=== PATIENT | female | born 1975 | race Caucasian/White ===

== ENCOUNTER 2017-07-22 16:17 | Emergency (ER) | payer OTHER ==
[~2017-07-22] VITALS: Ht 170.2 cm; Wt 99.3 kg
[~2017-07-22 16:17] MED LIST: ACCUNEB SO1.25 MG/1 INH; ACETAMINOPHEN-1 EAC1 PO; ACYCLOVIR 400400 MG PO; ACYCLOVIR 800800 M1 PO; ADULT LOW DOSE81 MG PO; AMOXICILLIN 50500 MG PO; AMOXICILLIN875 MG PO; ASPIR 8181 MG; ASPIR 8181 MG PO; ASPIRIN EC325 M1 PO; ASPIRIN325 PO; ATIVAN1 MG PO; AUGMENTIN 875875 M1 PO; AUGMENTIN 875875 MG PO; AZITHROMYCIN 2250 MG PO; BACTRIM DS TAB1 EACH PO; BENADRYL25 MG; BENADRYL25 MG PO; CATAPRES; CATAPRES PO; CATAPRES-TTS 10.1 MG PO; CATAPRES-TTS 20.2 MG PO; CATAPRES0.2 MG PO; CATAPRES0.2 MG TRANSDERM; CHERATUSSIN DA480 ML PO; CIPROFLOXACIN500 M1 PO; CLEOCIN HCL150 MG PO; CLEOCIN HCL300 MG PO; CLONIDINE HCL0.2 M2 PO; CLONIDINE TRANSDERM; CLONIDINE0.1; DIFLUCAN150 M1 PO; DIPHENHIST50 MG; DOXYCYCLINE 10100 M1 PO; DOXYCYCLINE HY100 MG PO; FIORICET 50-321 EACH PO; FLAGYL500 M1 PO; FLAGYL500 MG PO; FLONASE 0.05%50 MCG NS; HYDROCHLOROTHIA25 M2 PO; HYDROCODON-ACE1 EA11 PO; HYDROCODON-ACE1 EAC7 PO; HYDROCODONE-AP1 EAC6 PO; HYDROCODONE-APA1 TA1 PO; K-DUR 20 MEQ T20 MEQ PO; KEFLEX500 MG; KEFLEX500 MG PO; LIDOCAINE 22 %/30 GM TOP; LIDOCREAM5 GM TP; LIDODERM 5%1 PATC1 TRANSDERM; LIPITOR40 MG PO; LISINOPRIL-HCT1 EAC1 PO; LISINOPRIL10 MG PO; LORTAB 5 MG/5001 TA1 PO; MACROBID 100 M100 M1 PO; METFORMIN HCL500 MG PO; METOPROLOL SUCC50 MG PO; NORCO 5-325 TA1 EACH PO; NORCO 7.5-3251 EACH PO; NORVASC 5 MG TAB5 MG PO; NORVASC10 MG PO; OMEGA-31000 MG PO; ONDANSETRON HCL4 M2 PO; ONDANSETRON ODT4 MG PO; PENICILLIN VK500 M1; PENICILLIN VK500 M1 PO; PERCOCET; PERCOCET 5-3251 EACH PO; PERCOCET 7.5-31 EACH PO; PERCOCET PO; PHENERGAN 25 MG25 M1 PO; PHENERGAN 25 MG25 MG PO; PLAVIX 75 MG TA75 M1 PO; POTASSIUM20 PO; PREDNISONE 10 M10 MG; PREDNISONE 20 M20 MG PO; PREDNISONE 5 MG5 M1 PO; PRILOSEC40 MG PO; ROBAXIN 750 MG750 M1 PO; ROBAXIN500 MG PO; SANTYL OINTMENT30 G1; SILVASORB; TESSALON PERLE100 MG PO; TOPROL XL50 MG PO; TYLENOL325 MG PO; ULTRAM 50MG TAB50 MG PO; VALACYCLOVIR1000 MG PO; VANCOCIN 125 M125 M1 PO; VICODIN 5-5001 EACH PO; ZANTAC300 MG PO; ZOFRAN 4 MG ORAL4 M1 DIS; ZOFRAN 4 MG ORAL4 MG PO; ZOFRAN ODT4 MG PO; ZOFRAN ODT4 MG SUBLING; ZOFRAN4 MG PO; ZPAK PO
[2017-07-22] MEDS ORDERED: HYDRALAZINE 5050 MG PO (16:38)
[2017-07-22] MEDS ORDERED: COREG25 MG PO (16:40)
[2017-07-22 17:38] LABS: ABSOLUTE BASOPHILS 0.1 thou/uL (0.0-0.2); ABSOLUTE EOSINOPHILS 0.2 thou/uL (0.0-0.7); ABSOLUTE LYMPHOCYTES 2.6 thou/uL (0.8-5.3); ABSOLUTE MONOCYTES 0.7 thou/uL (0.0-1.2); ABSOLUTE NEUTROPHILS 9.2 thou/uL (1.6-8.1); BASOPHILS 0.7 %; EOSINOPHILS 1.2 %; HEMATOCRIT 49.9 % (37.0-47.0); HEMOGLOBIN 16.9 gm/dL (12.0-15.0); MCH 28.9 pg (26.0-34.0); MCV 85.3 fL (80.0-100.0); MONOCYTES 5.8 %; MPV 9.4 fl. (7.2-11.1); NUCLEATED RBCS 0 /100WBC; PLATELET COUNT* 225 thou/uL (150-400); POLYS 72.3 %; RBC 5.85 mil/uL (4.20-5.00); RDW-CV 17.7 % (10.5-14.5); WBC 12.8 thou/uL (4.0-11.0)
[2017-07-22 17:47] LABS: CREATININE 0.8 mg/dL (0.6-1.3); POTASSIUM 3.1 mmol/L (3.5-5.1)
[2017-07-22 17:52] LABS: TOTAL BILIRUBIN 0.4 mg/dL (<0.1-1.0); TOTAL PROTEIN 8.3 g/dL (6.4-8.2)
[2017-07-22] MEDS ORDERED: HYDROCODONE-AP1 EAC6 PO (18:38)
[2017-07-22] MEDS ORDERED: KEFLEX500 M1 PO (18:38)
[2017-07-22 18:44] VITALS: BP 144/100
[2017-07-22 18:45] LABS: ESR (SEDRATE) 10 mm/hr (0-20)
== END 2017-07-22 18:46 | disposition home or self-care (01) ==
LOC: M.ERS 16:17
PROVIDERS: Physician Assistant
DX: N64.4 Mastodynia (principal); I16.0 Hypertensive urgency; E11.9 Type 2 diabetes mellitus without complications; F17.210 Nicotine dependence, cigarettes, uncomplicated; Z87.442 Personal history of urinary calculi; Z90.710 Acquired absence of both cervix and uterus; Z85.43 Personal history of malignant neoplasm of ovary; Z90.49 Acquired absence of other specified parts of digestive tract; Z88.1 Allergy status to other antibiotic agents; Z88.6 Allergy status to analgesic agent; Z88.8 Allergy status to other drugs, medicaments and biological substances

== ENCOUNTER 2018-02-04 16:46 | Emergency (ER) | payer OTHER ==
[~2018-02-04] VITALS: Ht 170.2 cm; Wt 99.8 kg
[~2018-02-04 16:46] MED LIST changes: +COREG25 MG PO; +HYDRALAZINE 5050 MG PO; +KEFLEX500 M1 PO
[2018-02-04] MEDS ORDERED: KEFLEX500 M1 PO (17:58)
[2018-02-04] MEDS ORDERED: NORCO 5-325 TA1 EACH PO (17:58)
[2018-02-04 18:30] VITALS: BP 166/104
== END 2018-02-04 18:31 | disposition home or self-care (01) ==
LOC: M.ERS 16:46
DX: S90.31XA Contusion of right foot, initial encounter (principal); X58.XXXA Exposure to other specified factors, initial encounter; Y93.89 Activity, other specified; Y92.89 Other specified places as the place of occurrence of the external cause; Y99.8 Other external cause status; I10 Essential (primary) hypertension; Z90.49 Acquired absence of other specified parts of digestive tract; Z90.710 Acquired absence of both cervix and uterus

== ENCOUNTER 2018-03-30 12:26 | Emergency (ER) | payer OTHER ==
[~2018-03-30] VITALS: Ht 170.2 cm; Wt 98.9 kg
[2018-03-30] MEDS ORDERED: NORCO 5-325 TA1 EACH PO (15:06)
[2018-03-30 15:28] VITALS: BP 178/111
== END 2018-03-30 15:48 | disposition home or self-care (01) ==
LOC: M.ERS 12:26
DX: M25.512 Pain in left shoulder (principal); M25.522 Pain in left elbow; W00.0XXA Fall on same level due to ice and snow, initial encounter; Y93.89 Activity, other specified; Y92.89 Other specified places as the place of occurrence of the external cause; Y99.8 Other external cause status; I10 Essential (primary) hypertension; Z85.41 Personal history of malignant neoplasm of cervix uteri; Z85.43 Personal history of malignant neoplasm of ovary

== ENCOUNTER 2018-06-16 13:33 | Emergency (ER) | payer OTHER ==
[~2018-06-16] VITALS: Ht 170.2 cm; Wt 95.3 kg
[2018-06-16] MEDS ORDERED: COUMADIN 5 MG TA5 M1 PO (13:48)
[2018-06-16 13:50] LABS: URINE BILIRUBIN NEGATIVE (Negative); URINE BLOOD TRACE (Negative); URINE CLARITY CLEAR; URINE COLOR YELLOW; URINE GLUCOSE-RANDOM NEGATIVE (Negative); URINE KETONES NEGATIVE (Negative); URINE LEUKOCYTES-REFLEX NEGATIVE (Negative); URINE NITRITE-REFLEX NEGATIVE (Negative); URINE PROTEIN NEGATIVE (Negative); URINE SPECIFIC GRAVITY <= 1.005 (1.005-1.030); URINE UROBILINOGEN 0.2 E.U./dl (0.2-1.0)
[2018-06-16 14:29] LABS: ABSOLUTE BASOPHILS 0.1 thou/uL (0.0-0.2); ABSOLUTE EOSINOPHILS 0.2 thou/uL (0.0-0.7); ABSOLUTE LYMPHOCYTES 2.1 thou/uL (0.8-5.3); ABSOLUTE MONOCYTES 0.8 thou/uL (0.0-1.2); ABSOLUTE NEUTROPHILS 6.3 thou/uL (1.6-8.1); BASOPHILS 1.2 %; EOSINOPHILS 2.3 %; HEMATOCRIT 46.4 % (37.0-47.0); HEMOGLOBIN 15.9 gm/dL (12.0-15.0); MCHC 34.2 g/dL (28.0-37.0); MCV 87.9 fL (80.0-100.0); MONOCYTES 8.3 %; MPV 8.4 fl. (7.2-11.1); NUCLEATED RBCS 0 /100WBC; PLATELET COUNT* 258 thou/uL (150-400); POLYS 66.2 %; RBC 5.28 mil/uL (4.20-5.00); RDW-CV 15.1 % (10.5-14.5); WBC 9.6 thou/uL (4.0-11.0)
[2018-06-16 14:36] LABS: CALCIUM 9.4 mg/dL (8.5-10.1); CREATININE 0.8 mg/dL (0.6-1.3); POTASSIUM 3.8 mmol/L (3.5-5.1)
[2018-06-16 14:41] LABS: ALBUMIN 3.3 g/dL (3.4-5.0); TOTAL BILIRUBIN 0.2 mg/dL (<0.1-1.0); TOTAL PROTEIN 7.7 g/dL (6.4-8.2)
[2018-06-16] MEDS ORDERED: ZOFRAN ODT4 MG PO (15:28)
[2018-06-16 15:37] VITALS: BP 182/107
== END 2018-06-16 15:38 | disposition home or self-care (01) ==
LOC: M.ERS 13:33
PROVIDERS: Nurse Practitioner Family
DX: R10.9 Unspecified abdominal pain (principal); R11.2 Nausea with vomiting, unspecified; I10 Essential (primary) hypertension; E11.9 Type 2 diabetes mellitus without complications; Z87.442 Personal history of urinary calculi; Z95.5 Presence of coronary angioplasty implant and graft; Z85.3 Personal history of malignant neoplasm of breast; Z88.1 Allergy status to other antibiotic agents; Z88.6 Allergy status to analgesic agent; Z88.8 Allergy status to other drugs, medicaments and biological substances; Z85.43 Personal history of malignant neoplasm of ovary; Z90.710 Acquired absence of both cervix and uterus; Z90.49 Acquired absence of other specified parts of digestive tract

== ENCOUNTER 2018-08-20 17:10 | Emergency (ER) | payer OTHER ==
[~2018-08-20] VITALS: Ht 170.2 cm; Wt 105.7 kg
[~2018-08-20 17:10] MED LIST changes: +COUMADIN 5 MG TA5 M1 PO
[2018-08-20] MEDS ORDERED: BENTYL 20 MG TA20 M1 PO (17:15)
[2018-08-20 17:55] LABS: HEMATOCRIT 44.2 % (37.0-47.0); HEMOGLOBIN 15.1 gm/dL (12.0-15.0); MCH 29.8 pg (26.0-34.0); MCHC 34.1 g/dL (28.0-37.0); MCV 87.4 fL (80.0-100.0); MPV 8.9 fl. (7.2-11.1); NUCLEATED RBCS 0 /100WBC; PLATELET COUNT* 232 thou/uL (150-400); RBC 5.06 mil/uL (4.20-5.00); RDW-CV 15.6 % (10.5-14.5)
[2018-08-20 18:06] LABS: ALBUMIN 3.3 g/dL (3.4-5.0); CALCIUM 8.6 mg/dL (8.5-10.1); CREATININE 0.8 mg/dL (0.6-1.3); TOTAL BILIRUBIN 0.4 mg/dL (<0.1-1.0); TOTAL PROTEIN 7.4 g/dL (6.4-8.2)
[2018-08-20 18:16] LABS: ABSOLUTE EOSINOPHILS 0.2 thou/uL (0.0-0.7); ABSOLUTE MONOCYTES 0.2 thou/uL (0.0-1.2); ABSOLUTE NEUTROPHILS 9.6 thou/uL (1.6-8.1); ATYPICAL LYMPHS 4 %; PLATELET ESTIMATE ADEQUATE
[2018-08-20] MEDS ORDERED: MIRALAX17 GM PO (19:06)
[2018-08-20 19:12] VITALS: BP 139/89
== END 2018-08-20 19:12 | disposition home or self-care (01) ==
LOC: M.ERS 17:10
PROVIDERS: Nurse Practitioner
DX: K59.00 Constipation, unspecified (principal); I10 Essential (primary) hypertension; Z85.41 Personal history of malignant neoplasm of cervix uteri; Z85.43 Personal history of malignant neoplasm of ovary; Z90.49 Acquired absence of other specified parts of digestive tract; Z95.5 Presence of coronary angioplasty implant and graft; Z90.710 Acquired absence of both cervix and uterus; F17.210 Nicotine dependence, cigarettes, uncomplicated; Z88.1 Allergy status to other antibiotic agents; Z88.8 Allergy status to other drugs, medicaments and biological substances

== ENCOUNTER 2018-11-12 19:36 | Emergency (ER) | payer OTHER ==
[~2018-11-12] VITALS: Ht 170.2 cm; Wt 95.3 kg
[~2018-11-12 19:36] MED LIST changes: +BENTYL 20 MG TA20 M1 PO; +MIRALAX17 GM PO
[2018-11-12] MEDS ORDERED: NORVASC10 MG PO (19:53)
[2018-11-12] MEDS ORDERED: METFORMIN HCL500 MG PO (19:54)
[2018-11-12] MEDS ORDERED: SPIRONOLACTONE25 M1 PO (19:54)
[2018-11-12] MEDS ORDERED: TRULICITY0.75 MG/0. SUBQ (19:54)
[2018-11-12] MEDS ORDERED: NORCO 5-325 TA1 EAC1 PO (21:05)
[2018-11-12 21:18] VITALS: BP 177/114
[2018-11-13] MEDS ORDERED: PERCOCET PO (15:19)
== END 2018-11-12 21:19 | disposition home or self-care (01) ==
LOC: M.ERS 19:36
DX: S67.21XA Crushing injury of right hand, initial encounter (principal); I10 Essential (primary) hypertension; E11.9 Type 2 diabetes mellitus without complications; F17.210 Nicotine dependence, cigarettes, uncomplicated; Z88.1 Allergy status to other antibiotic agents; Z88.8 Allergy status to other drugs, medicaments and biological substances; Z88.6 Allergy status to analgesic agent; Z90.710 Acquired absence of both cervix and uterus; Z85.41 Personal history of malignant neoplasm of cervix uteri; Z90.49 Acquired absence of other specified parts of digestive tract; W23.1XXA Caught, crushed, jammed, or pinched between stationary objects, initial encounter; Y92.89 Other specified places as the place of occurrence of the external cause; Y93.89 Activity, other specified; Y99.8 Other external cause status

== ENCOUNTER 2018-11-13 13:24 | Emergency (ER) | payer OTHER ==
[~2018-11-13] VITALS: Ht 170.2 cm; Wt 95.3 kg
[~2018-11-13 13:24] MED LIST changes: +NORCO 5-325 TA1 EAC1 PO; +SPIRONOLACTONE25 M1 PO; +TRULICITY0.75 MG/0. SUBQ
[2018-11-13 14:41] LABS: ABSOLUTE BASOPHILS 0.1 thou/uL (0.0-0.2); ABSOLUTE EOSINOPHILS 0.2 thou/uL (0.0-0.7); ABSOLUTE LYMPHOCYTES 2.3 thou/uL (0.8-5.3); ABSOLUTE MONOCYTES 0.7 thou/uL (0.0-1.2); ABSOLUTE NEUTROPHILS 7.3 thou/uL (1.6-8.1); BASOPHILS 1.2 %; EOSINOPHILS 2.1 %; HEMATOCRIT 45.4 % (37.0-47.0); HEMOGLOBIN 15.4 gm/dL (12.0-15.0); LYMPHOCYTES 21.9 %; MCH 30.1 pg (26.0-34.0); MCHC 33.9 g/dL (28.0-37.0); MCV 88.7 fL (80.0-100.0); MONOCYTES 6.2 %; NUCLEATED RBCS 0 /100WBC; PLATELET COUNT* 245 thou/uL (150-400); POLYS 68.6 %; RBC 5.12 mil/uL (4.20-5.00); RDW-CV 15.6 % (10.5-14.5); WBC 10.7 thou/uL (4.0-11.0)
[2018-11-13 14:48] LABS: POTASSIUM 3.6 mmol/L (3.5-5.1)
[2018-11-13] MEDS ORDERED: PERCOCET PO (15:19)
[2018-11-13 15:37] VITALS: BP 181/100
== END 2018-11-13 15:40 | disposition home or self-care (01) ==
LOC: M.ERS 13:24
PROVIDERS: Emergency Medicine Emergency Medical Services
DX: M79.641 Pain in right hand (principal); I10 Essential (primary) hypertension; Z85.43 Personal history of malignant neoplasm of ovary; Z85.41 Personal history of malignant neoplasm of cervix uteri; Z90.49 Acquired absence of other specified parts of digestive tract; Z95.5 Presence of coronary angioplasty implant and graft; F17.210 Nicotine dependence, cigarettes, uncomplicated; Z88.5 Allergy status to narcotic agent; Z88.8 Allergy status to other drugs, medicaments and biological substances

== ENCOUNTER 2018-11-14 19:57 | Observation (INO) | payer OTHER ==
[~2018-11-14] VITALS: Ht 170.2 cm; Wt 95.3 kg
[2018-11-14 20:07] VITALS: BP 151/111
[2018-11-14 22:16] LABS: ABSOLUTE BASOPHILS 0.2 thou/uL (0.0-0.2); ABSOLUTE EOSINOPHILS 0.2 thou/uL (0.0-0.7); ABSOLUTE LYMPHOCYTES 2.5 thou/uL (0.8-5.3); ABSOLUTE MONOCYTES 0.7 thou/uL (0.0-1.2); ABSOLUTE NEUTROPHILS 10.2 thou/uL (1.6-8.1); BASOPHILS 1.2 %; EOSINOPHILS 1.7 %; HEMOGLOBIN 16.2 gm/dL (12.0-15.0); LYMPHOCYTES 18.2 %; MCH 29.8 pg (26.0-34.0); MCHC 33.7 g/dL (28.0-37.0); MCV 88.4 fL (80.0-100.0); MONOCYTES 4.9 %; NUCLEATED RBCS 0 /100WBC; PLATELET COUNT* 264 thou/uL (150-400); RBC 5.42 mil/uL (4.20-5.00); RDW-CV 15.5 % (10.5-14.5); WBC 13.7 thou/uL (4.0-11.0)
[2018-11-14 22:25] LABS: CREATININE 0.8 mg/dL (0.6-1.3); POTASSIUM 3.6 mmol/L (3.5-5.1)
[2018-11-14 22:30] LABS: ALBUMIN 4.1 g/dL (3.4-5.0); TOTAL BILIRUBIN 0.4 mg/dL (<0.1-1.0); TOTAL PROTEIN 8.6 g/dL (6.4-8.2)
[2018-11-15 00:16] VITALS: BP 150/95
[2018-11-15 00:20] VITALS: BP 120/84
[2018-11-15 09:11] VITALS: BP 147/91
[2018-11-15 10:36] LABS: ABSOLUTE BASOPHILS 0.1 thou/uL (0.0-0.2); ABSOLUTE EOSINOPHILS 0.2 thou/uL (0.0-0.7); ABSOLUTE LYMPHOCYTES 2.3 thou/uL (0.8-5.3); ABSOLUTE MONOCYTES 0.7 thou/uL (0.0-1.2); ABSOLUTE NEUTROPHILS 5.7 thou/uL (1.6-8.1); BASOPHILS 0.7 %; EOSINOPHILS 2.8 %; HEMATOCRIT 41.2 % (37.0-47.0); LYMPHOCYTES 25.2 %; MCH 30.4 pg (26.0-34.0); MCHC 34.2 g/dL (28.0-37.0); MCV 88.7 fL (80.0-100.0); MONOCYTES 7.8 %; MPV 9.5 fl. (7.2-11.1); NUCLEATED RBCS 0 /100WBC; PLATELET COUNT* 213 thou/uL (150-400); POLYS 63.5 %; RBC 4.64 mil/uL (4.20-5.00); RDW-CV 15.3 % (10.5-14.5)
[2018-11-15 10:38] LABS: HEMOGLOBIN 14.1 gm/dL (12.0-15.0)
[2018-11-15 10:40] LABS: CALCIUM 9.7 mg/dL (8.5-10.1); CREATININE 0.9 mg/dL (0.6-1.3); POTASSIUM 3.4 mmol/L (3.5-5.1)
[2018-11-15 11:09] LABS: PROTIME 10.3 Seconds (9.20-11.50)
[2018-11-15] MEDS ORDERED: PAIN RELIEVER500 MG PO (11:29)
[2018-11-15] MEDS ORDERED: OXYCODONE HCL 55 MG PO (11:29)
[2018-11-15] MEDS ORDERED: SENNA S TABLET1 EACH PO (11:30)
[2018-11-15 12:13] VITALS: BP 120/84
== END 2018-11-15 12:50 | disposition home or self-care (01) ==
LOC: M.ERS 19:57 → M.ORTHSURG 23:31 → M.TBA-ER 23:31 → M.ORTHSURG 11-15 00:22
PROVIDERS: Emergency Medicine; Family Medicine; ADMIT Internal Medicine
DX: S60.221A Contusion of right hand, initial encounter (principal); I10 Essential (primary) hypertension; E11.9 Type 2 diabetes mellitus without complications; E78.5 Hyperlipidemia, unspecified; I25.10 Atherosclerotic heart disease of native coronary artery without angina pectoris; F17.210 Nicotine dependence, cigarettes, uncomplicated; R55 Syncope and collapse; R11.2 Nausea with vomiting, unspecified; Z90.49 Acquired absence of other specified parts of digestive tract; Z79.899 Other long term (current) drug therapy; Z95.5 Presence of coronary angioplasty implant and graft; Z85.43 Personal history of malignant neoplasm of ovary; Z85.41 Personal history of malignant neoplasm of cervix uteri; Z98.890 Other specified postprocedural states; X50.9XXA Other and unspecified overexertion or strenuous movements or postures, initial encounter; Y92.89 Other specified places as the place of occurrence of the external cause; Y99.8 Other external cause status

== ENCOUNTER 2018-11-18 12:05 | Inpatient (IN) | payer OTHER ==
[~2018-11-18] VITALS: Ht 170.2 cm; Wt 100.0 kg
[~2018-11-18 12:05] MED LIST changes: +OXYCODONE HCL 55 MG PO; +PAIN RELIEVER500 MG PO; +SENNA S TABLET1 EACH PO
[2018-11-18 12:09] VITALS: BP 151/114
[2018-11-18 12:29] LABS: ABSOLUTE BASOPHILS 0.1 thou/uL (0.0-0.2); ABSOLUTE EOSINOPHILS 0.1 thou/uL (0.0-0.7); ABSOLUTE LYMPHOCYTES 2.1 thou/uL (0.8-5.3); ABSOLUTE MONOCYTES 0.5 thou/uL (0.0-1.2); ABSOLUTE NEUTROPHILS 8.8 thou/uL (1.6-8.1); EOSINOPHILS 1.1 %; HEMATOCRIT 46.9 % (37.0-47.0); HEMOGLOBIN 15.6 gm/dL (12.0-15.0); MCH 29.7 pg (26.0-34.0); MCHC 33.3 g/dL (28.0-37.0); MCV 89.3 fL (80.0-100.0); MONOCYTES 4.3 %; MPV 9.3 fl. (7.2-11.1); NUCLEATED RBCS 0 /100WBC; PLATELET COUNT* 258 thou/uL (150-400); POLYS 75.6 %; RBC 5.26 mil/uL (4.20-5.00); RDW-CV 15.3 % (10.5-14.5); WBC 11.6 thou/uL (4.0-11.0)
[2018-11-18 12:39] LABS: ANION GAP 10 mmol/L (7-16); BUN 10 mg/dL (7-18); CALCIUM 10.1 mg/dL (8.5-10.1); CHLORIDE 104 mmol/L (98-107); CO2 23 mmol/L (21-32); CREATININE 0.9 mg/dL (0.6-1.3); GLUCOSE 226 mg/dL (70-99); POTASSIUM 4.2 mmol/L (3.5-5.1); SODIUM 137 mmol/L (136-145)
[2018-11-18 12:41] LABS: PROTIME 10.4 Seconds (9.20-11.50)
[2018-11-18 12:48] LABS: ALBUMIN 3.9 g/dL (3.4-5.0); ALKALINE PHOSPHATASE 130 U/L (46-116); LIPASE 145 U/L (73-393); SGOT 19 U/L (15-37); SGPT 37 U/L (30-65); TOTAL BILIRUBIN 0.2 mg/dL (<0.1-1.0); TOTAL PROTEIN 8.5 g/dL (6.4-8.2); TROPONIN-I LEVEL <0.06 ng/mL (<0.06)
--- NOTE | 2018-11-18 16:34 | EKG ---
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1975 Requested By: Telly Bobo Order Number: [id number] MD: Eric Lovelace Measurements Intervals [place] Rate: 114 P: 3 IN: 136 QRS: 44 QRSD: 89 T: -3 QT: 329 QTc: 454 Interpretive Statements Sinus tachycardia The late R-wave progression Borderline T abnormalities, inferior leads Compared to ECG 10/31/2015 17:57:20 T-wave abnormality now present Electronically Signed On 11-18-2018 16:34:00 CDT by Eric Lovelace [email or web address] <ELECTRONICALLY SIGNED> By: Eric Lovelace MD, FACC 11/18/18 1634 1211 1211 Eric Lovelace MD, [facility] /EPI
[2018-11-18 17:11] VITALS: BP 160/103
[2018-11-18 18:00] VITALS: BP 140/82
[2018-11-18 20:00] VITALS: BP 136/87
--- NOTE | 2018-11-18 20:00 | NUR ---
RECEIVED REPORT AND ASSUMED CARE OF PT, ASSESSMENT COMPLETED. PT C/O CONSTANT ACHING CHEST PAIN, STATES HYDROCODONE DIDN'T WORK, ASKING FOR MORPHINE WHEN AVAILABLE. REASSURANCE GIVEN. TELEMETRY ON SHOWING SR. WILL CONT TO MONITOR AND ASSIST NEEDED.
[2018-11-19 00:17] VITALS: BP 123/65
[2018-11-19 04:00] VITALS: BP 131/82
[2018-11-19 05:09] LABS: ABSOLUTE BASOPHILS 0.1 thou/uL (0.0-0.2); ABSOLUTE EOSINOPHILS 0.2 thou/uL (0.0-0.7); ABSOLUTE LYMPHOCYTES 2.7 thou/uL (0.8-5.3); ABSOLUTE MONOCYTES 0.7 thou/uL (0.0-1.2); ABSOLUTE NEUTROPHILS 5.8 thou/uL (1.6-8.1); EOSINOPHILS 2.5 %; HEMATOCRIT 40.2 % (37.0-47.0); LYMPHOCYTES 28.5 %; MCH 29.9 pg (26.0-34.0); MCHC 33.2 g/dL (28.0-37.0); MCV 90.2 fL (80.0-100.0); MONOCYTES 6.9 %; MPV 9.8 fl. (7.2-11.1); NUCLEATED RBCS 0 /100WBC; PLATELET COUNT* 217 thou/uL (150-400); POLYS 61.1 %; RBC 4.45 mil/uL (4.20-5.00); RDW-CV 15.7 % (10.5-14.5); WBC 9.5 thou/uL (4.0-11.0)
[2018-11-19 05:12] LABS: HEMOGLOBIN 13.3 gm/dL (12.0-15.0)
[2018-11-19 05:36] LABS: CREATININE 0.7 mg/dL (0.6-1.3); POTASSIUM 3.7 mmol/L (3.5-5.1)
--- NOTE | 2018-11-19 05:57 | NUR ---
PT AWAKE FREQ. UPSET ABOUT HER PAIN MEDICATION, ASKING FOR PO PAIN MED WITHIN A SHORT PERIOD OF RECEIVING IV MED. EXPLAINED THEY NEEDED TO BE SPACED OUT. EARLIER IN THE EVENING PT STATED HYDROCODON DIDN'T WORK FOR HER. ROOM DARK AND QUIET WITH REASSURANCE GIVEN. TELEMETRY CONT TO SHOW SR. HS GOALS OF SAFETY ACHIEVED. HOURLY ROUNDING OBSERVED.
[2018-11-19 08:00] VITALS: BP 128/69
[2018-11-19 11:30] VITALS: BP 145/86
--- NOTE | 2018-11-19 14:01 | NUR ---
ATTEMPTED TO MEET WITH PT, OFF UNIT. KNOWN FROM ADMIT EARLIER THIS MONTH. LIVES WITH SPOUSE, IS INDEPENDENT. UNINSURED AND WAS GIVEN COMMUNITY RESOURCE INFO AT LAST STAY. WILL FOLLOW
--- NOTE | 2018-11-19 14:25 | CON ---
[address] [address] CONSULTATION Name: LACHELLE VALADEZ Room: [address] IN M.R.#: [id number] Admission: 11/18/18 Attend Phys: Castro Guzman MD Discharge: Date of : 71 Report #: [id number] THIS REPORT FOR: //name// CC: Castro Guzman [facility] physician/PCP REASON FOR CONSULTATION: Chest pain. HISTORY OF PRESENT ILLNESS: The patient is a 43-year-old white female with a history of coronary artery disease with previous percutaneous coronary intervention in 2016. Risk factors include hypertension, dyslipidemia, tobacco use, borderline diabetes, and family history of premature atherosclerotic coronary artery disease. She was admitted in the hospital with progressive left of sternum chest discomfort, radiating to the left shoulder and back. This has been waxing and waning. Enzymes were unremarkable. EKG does not show ST elevation. At the present time, she is not having chest pain. Yesterday, she had an episode while cleaning her house. She is without other cardiac complaint at this time. PAST MEDICAL HISTORY: 1. Coronary artery disease. 2. History of cholecystectomy. 3. Hysterectomy. 4. Elbow surgery. FAMILY HISTORY: The patient's father had premature atherosclerotic coronary artery disease. The patient's brother had a heart attack at age 47. The patient's sister with cardiomyopathy at the age of 39. SOCIAL HISTORY: The patient does smoke a pack of cigarettes daily. She does not drink alcohol. ALLERGIES: COMPAZINE, FLEXERIL, NONSTEROIDALS, IMITREX, LEVAQUIN, NITROSTAT. MEDICATIONS: Tylenol 1000 mg q. 6 p.r.n., Norvasc 10 mg daily, carvedilol 37.5 mg b.i.d., Trulicity 0.75 mg weekly, hydralazine 75 mg t.i.d., hydrochlorothiazide 25 mg daily, metformin 1000 mg b.i.d., Zofran 4 mg q. 4-6 hours p.r.n., oxycodone 5 mg q. 6 hours p.r.n., MiraLax 17 gm daily, Senna-S tablets one tablet b.i.d., spironolactone 25 mg daily, warfarin 5 mg daily. INR is normal today. REVIEW OF SYSTEMS: A 14-point review of systems is positive for palpitations, chest discomfort, and shortness of breath. She has diabetes. She has chronic hematuria. She reports history of ovarian cancer, depression, and anxiety. She has arthritis. Otherwise, 14-point review [place] [address] CONSULTATION Name: LACHELLE VALADEZ Room: [address] M.R.#: [id number] Admission: 11/18/18 Attend Phys: Castro Guzman MD Discharge: Date of : 71 Report #: [id number] PHYSICAL EXAMINATION: VITAL SIGNS: Blood pressure 128/69, pulse 62 and regular. GENERAL: This is a pleasant lady, in no distress. HEENT: Extraocular muscles intact. Mucous membranes moist. NECK: Shows no jugular venous distention. There are no carotid bruits. CHEST: Reveals clear lung coe. CARDIOVASCULAR: Reveals a regular rhythm, normal S1 and S2. I do not appreciate gallop or murmur. ABDOMEN: Reveals protuberant abdomen, soft and nontender. EXTREMITIES: Shows no edema. Peripheral pulses 2+ and palpable. SKIN: Warm and dry. IMPRESSION AND RECOMMENDATIONS: 1. Chest pain consistent with unstable angina. We will proceed with coronary angiography. Further intervention will be pending results of that study. 2. Hypertension, presently stable on current regimen. 3. Hyperlipidemia. Continue atorvastatin at current dose. 4. Diabetes, per primary physician. <ELECTRONICALLY SIGNED> By: Eric Lovelace MD, FACC 11/19/18 1425 1030 1223Eric Lovelace MD, FACC /nt
[2018-11-19 15:43] VITALS: BP 145/86
--- NOTE | 2018-11-19 18:22 | CARD ---
[address] [address] CARDIAC CATH REPORT Name: LACHELLE VALADEZ Room: [address] IN M.R.#: [id number] Admission: 11/18/18 Attend Phys: Castro Guzman MD Discharge: 11/19/18 Date of : 71 Report #: [id number] THIS REPORT FOR: //name// APPROVED REPORT Study performed: 11/19/2018 13:08:56 Patient Details The patient is a 43 year-old female Event Personnel Eric Lovelace Muleser, Aster Morrow Pediatric Radiologist, Esteban Macias (Steve) Gerber Sutherland Brittany RN Monitor, Sylvie Mcdaniel RTR Monitor Procedures Performed Art Access - R femoral artery* Procedure Narrative The patient was brought electively to the Cardiac Catheterization Laboratory and was prepped and draped in a sterile manner. A 6fr Ultimum Sheath sheath was inserted into the right femoral artery. Coronary angiography was performed using coronary diagnostic catheters. The right coronary system was accessed and visualized with a JR4 6frDiagnostic catheter. The left coronary system was accessed and visualized with a JL4 6fr catheter. The left ventricle was accessed and visualized with a PC: Pig 6fr catheter. The patient tolerated the procedure well and there were no complications associated with the procedure. Intraoperative Conscious Sedation Sedation start time: 13:42 Case end Time: 13:50 Fentanyl 50 mcg Versed 3 mg Fluoro Time: 1.8 minutes Dose: DAP 40472 cGycm2 771 mGy Contrast Type and Amount: 100 Diagnostic Cath Left Main Normal LAD Normal in the proximal mid and distal portion. Diagonal 1 Normal and moderate caliber. Diagonal 2 Normal and moderate caliber. Circumflex Normal in the proximal [place] [address] CARDIAC CATH REPORT Name: LACHELLE VALADEZ Room: [address] IN .R.#: [id number] Admission: 11/18/18 Attend Phys: Castro Guzman MD Discharge: 11/19/18 Date of : 71 Report #: [id number] OM1 Large branched and normal. Right Coronary Widely patent stents in the ostial to proximal right coronary artery. Minimal plaquing in the mid to distal vessel. R PDA Small in caliber and diffusely plaqued. RPLV Moderate and branched. Mild plaquing. Ramus Moderate in size and normal in appearance. Left Ventriculography The left ventricle is normal in size with normal contractility. The left ventricular ejection fraction is estimated to be 65-70%. Hemodynamics The aortic pressure is 154/78 mmHg with a mean of 98 mmHg. The left ventricular pressure is 159/6 mmHg with a mean of mmHg. The left ventricular end diastolic pressure is 18 mmHg. Conclusion 1. Widely patent stent in the proximal right coronary artery. 2. Nonocclusive disease. 3. Normal left ventricular systolic function. 4. Mentally elevated left ventricular end-diastolic pressure. Recommendations 1. Continue medical management and aggressive risk factor modification. <ELECTRONICALLY SIGNED> By: Eric Lovelace MD, [facility] 11/19/181820 20 20Micsiobhan Lovelace MD, FACC /INF
== END 2018-11-19 17:00 | disposition home or self-care (01) | DRG 287 ==
LOC: M.ERS 12:05 → M.2W 13:16 → M.TBA-ER 13:16 → M.2W 17:30
PROVIDERS: Emergency Medicine Emergency Medical Services; ADMIT Internal Medicine
PROC: B2151ZZ Fluoroscopy of Left Heart using Low Osmolar Contrast (ICD-10-PCS; principal; 2018-11-19)
PROC: B2111ZZ Fluoroscopy of Multiple Coronary Arteries using Low Osmolar Contrast (ICD-10-PCS; principal; 2018-11-19)
PROC: 4A023N7 Measurement of Cardiac Sampling and Pressure, Left Heart, Percutaneous Approach (ICD-10-PCS; principal; 2018-11-19)
DX: I25.110 Atherosclerotic heart disease of native coronary artery with unstable angina pectoris (principal); I10 Essential (primary) hypertension; E78.5 Hyperlipidemia, unspecified; F17.210 Nicotine dependence, cigarettes, uncomplicated; G89.29 Other chronic pain; M19.90 Unspecified osteoarthritis, unspecified site; E11.9 Type 2 diabetes mellitus without complications; Z85.43 Personal history of malignant neoplasm of ovary; Z85.41 Personal history of malignant neoplasm of cervix uteri; Z90.710 Acquired absence of both cervix and uterus; Z95.5 Presence of coronary angioplasty implant and graft; Z88.1 Allergy status to other antibiotic agents; Z88.8 Allergy status to other drugs, medicaments and biological substances; Z90.49 Acquired absence of other specified parts of digestive tract; Z82.49 Family history of ischemic heart disease and other diseases of the circulatory system; Z79.899 Other long term (current) drug therapy

== ENCOUNTER 2018-11-28 08:29 | Emergency (ER) | payer OTHER ==
[~2018-11-28] VITALS: Ht 172.7 cm; Wt 99.8 kg
[2018-11-28 09:02] LABS: URINE BILIRUBIN NEGATIVE (Negative); URINE BLOOD 3+ (Negative); URINE CLARITY CLOUDY; URINE COLOR BROWN; URINE GLUCOSE-RANDOM TRACE (Negative); URINE KETONES NEGATIVE (Negative); URINE LEUKOCYTES-REFLEX NEGATIVE (Negative); URINE NITRITE-REFLEX NEGATIVE (Negative); URINE PROTEIN 2+ (Negative); URINE UROBILINOGEN 0.2 E.U./dl (0.2-1.0)
[2018-11-28 09:09] LABS: SQUAMOUS >10 Many /LPF (0-3)
[2018-11-28 09:10] LABS: URINE RBC >20 Many /HPF (0-2); URINE WBC-REFLEX 0-5 Rare /HPF (0-5)
[2018-11-28 09:12] LABS: BACTERIA-REFLEX 1-9 Few /HPF (None Seen)
[2018-11-28 09:13] LABS: CASTS None Seen /LPF (None Seen); CRYSTALS None Seen /LPF (None Seen); MUCUS None Seen strn/LPF (None Seen)
[2018-11-28 09:20] LABS: ABSOLUTE BASOPHILS 0.1 thou/uL (0.0-0.2); ABSOLUTE EOSINOPHILS 0.1 thou/uL (0.0-0.7); ABSOLUTE LYMPHOCYTES 1.9 thou/uL (0.8-5.3); ABSOLUTE MONOCYTES 0.6 thou/uL (0.0-1.2); ABSOLUTE NEUTROPHILS 7.7 thou/uL (1.6-8.1); BASOPHILS 0.8 %; EOSINOPHILS 1.3 %; HEMATOCRIT 44.4 % (37.0-47.0); HEMOGLOBIN 15.3 gm/dL (12.0-15.0); MCH 30.5 pg (26.0-34.0); MCHC 34.5 g/dL (28.0-37.0); MCV 88.3 fL (80.0-100.0); MONOCYTES 5.6 %; MPV 8.7 fl. (7.2-11.1); NUCLEATED RBCS 0 /100WBC; PLATELET COUNT* 239 thou/uL (150-400); POLYS 74.3 %; RBC 5.03 mil/uL (4.20-5.00); RDW-CV 15.8 % (10.5-14.5); WBC 10.4 thou/uL (4.0-11.0)
[2018-11-28 09:31] LABS: CALCIUM 9.6 mg/dL (8.5-10.1); CREATININE 0.7 mg/dL (0.6-1.3); POTASSIUM 3.9 mmol/L (3.5-5.1)
[2018-11-28 09:35] LABS: ALBUMIN 3.8 g/dL (3.4-5.0); TOTAL BILIRUBIN 0.2 mg/dL (<0.1-1.0); TOTAL PROTEIN 8.1 g/dL (6.4-8.2)
[2018-11-28] MEDS ORDERED: ZOFRAN ODT4 MG PO (11:32)
[2018-11-28] MEDS ORDERED: HYDROCODON-ACE1 EAC7 PO (11:32)
[2018-11-28 12:57] VITALS: BP 121/72
== END 2018-11-28 12:57 | disposition home or self-care (01) ==
LOC: M.ERS 08:29
PROVIDERS: Personal Emergency Response Attendant
DX: R10.31 Right lower quadrant pain (principal); I10 Essential (primary) hypertension; E11.9 Type 2 diabetes mellitus without complications; F17.210 Nicotine dependence, cigarettes, uncomplicated; Z85.43 Personal history of malignant neoplasm of ovary; Z90.710 Acquired absence of both cervix and uterus; Z90.49 Acquired absence of other specified parts of digestive tract; Z87.442 Personal history of urinary calculi; Z88.6 Allergy status to analgesic agent; Z88.1 Allergy status to other antibiotic agents; Z88.8 Allergy status to other drugs, medicaments and biological substances

== ENCOUNTER 2018-12-02 17:38 | Emergency (ER) | payer OTHER ==
[~2018-12-02] VITALS: Ht 170.2 cm; Wt 95.3 kg
[2018-12-02] MEDS ORDERED: CLONIDINE0.1 PO (18:46)
[2018-12-02 18:51] VITALS: BP 158/96
== END 2018-12-02 18:52 | disposition home or self-care (01) ==
LOC: M.ERS 17:38
DX: I16.0 Hypertensive urgency (principal); I10 Essential (primary) hypertension; E11.9 Type 2 diabetes mellitus without complications; F17.210 Nicotine dependence, cigarettes, uncomplicated; Z88.1 Allergy status to other antibiotic agents; Z88.6 Allergy status to analgesic agent; Z88.8 Allergy status to other drugs, medicaments and biological substances; Z85.43 Personal history of malignant neoplasm of ovary; Z90.710 Acquired absence of both cervix and uterus; Z90.49 Acquired absence of other specified parts of digestive tract; Z87.442 Personal history of urinary calculi

== ENCOUNTER 2018-12-21 20:41 | Emergency (ER) | payer OTHER ==
[~2018-12-21] VITALS: Ht 170.2 cm; Wt 95.3 kg
[~2018-12-21 20:41] MED LIST changes: +CLONIDINE0.1 PO
[2018-12-21 20:57] LABS: URINE BILIRUBIN NEGATIVE (Negative); URINE BLOOD TRACE (Negative); URINE CLARITY CLEAR; URINE COLOR YELLOW; URINE GLUCOSE-RANDOM 1+ (Negative); URINE KETONES NEGATIVE (Negative); URINE LEUKOCYTES-REFLEX NEGATIVE (Negative); URINE NITRITE-REFLEX NEGATIVE (Negative); URINE PROTEIN NEGATIVE (Negative); URINE SPECIFIC GRAVITY 1.015 (1.005-1.030); URINE UROBILINOGEN 0.2 E.U./dl (0.2-1.0)
[2018-12-21 21:33] LABS: HEMATOCRIT 45.9 % (37.0-47.0); HEMOGLOBIN 15.4 gm/dL (12.0-15.0); MCH 30.7 pg (26.0-34.0); MCHC 33.6 g/dL (28.0-37.0); MCV 91.3 fL (80.0-100.0); MPV 8.8 fl. (7.2-11.1); RBC 5.02 mil/uL (4.20-5.00); RDW-CV 15.7 % (10.5-14.5); WBC 12.1 thou/uL (4.0-11.0)
[2018-12-21 21:45] LABS: CALCIUM 9.2 mg/dL (8.5-10.1); CREATININE 0.9 mg/dL (0.6-1.3); POTASSIUM 3.9 mmol/L (3.5-5.1)
[2018-12-21 22:16] LABS: AMP/METHAMP Negative (Negative); BARBITURATES Negative (Negative); BENZODIAZEPINES Negative (Negative); COCAINE Negative (Negative); METHADONE Negative (Negative); OPIATES POSITIVE (Negative); PCP Negative (Negative); THC Negative (Negative)
[2018-12-21 22:19] LABS: APTT 25.3 Seconds (25.0-31.3); PROTIME 10.5 Seconds (9.20-11.50)
[2018-12-21 22:38] VITALS: BP 187/110
== END 2018-12-21 22:39 | disposition home or self-care (01) ==
LOC: M.ERS 20:41
PROVIDERS: Nurse Practitioner Family; Personal Emergency Response Attendant
DX: N23 Unspecified renal colic (principal); G89.29 Other chronic pain; F17.210 Nicotine dependence, cigarettes, uncomplicated; I10 Essential (primary) hypertension; E11.9 Type 2 diabetes mellitus without complications; R61 Generalized hyperhidrosis; R11.0 Nausea; Z90.49 Acquired absence of other specified parts of digestive tract; Z88.1 Allergy status to other antibiotic agents; Z90.710 Acquired absence of both cervix and uterus; Z87.442 Personal history of urinary calculi; Z88.6 Allergy status to analgesic agent; Z88.5 Allergy status to narcotic agent

== ENCOUNTER 2019-01-03 12:30 | Emergency (ER) | payer OTHER ==
[~2019-01-03] VITALS: Ht 170.2 cm; Wt 95.3 kg
[2019-01-03 13:41] LABS: ABSOLUTE BASOPHILS 0.1 thou/uL (0.0-0.2); ABSOLUTE EOSINOPHILS 0.1 thou/uL (0.0-0.7); ABSOLUTE LYMPHOCYTES 2.2 thou/uL (0.8-5.3); ABSOLUTE MONOCYTES 0.6 thou/uL (0.0-1.2); ABSOLUTE NEUTROPHILS 9.3 thou/uL (1.6-8.1); BASOPHILS 1.2 %; EOSINOPHILS 1.1 %; HEMATOCRIT 45.7 % (37.0-47.0); HEMOGLOBIN 15.7 gm/dL (12.0-15.0); MCH 30.9 pg (26.0-34.0); MCHC 34.2 g/dL (28.0-37.0); MCV 90.2 fL (80.0-100.0); MPV 9.5 fl. (7.2-11.1); NUCLEATED RBCS 0 /100WBC; PLATELET COUNT* 219 thou/uL (150-400); POLYS 74.7 %; RBC 5.07 mil/uL (4.20-5.00); RDW-CV 15.5 % (10.5-14.5); WBC 12.4 thou/uL (4.0-11.0)
[2019-01-03 13:50] LABS: APTT 25.2 Seconds (25.0-31.3); PROTIME 10.7 Seconds (9.20-11.50)
[2019-01-03 13:51] LABS: ANION GAP 10 mmol/L (7-16); BUN 9 mg/dL (7-18); CALCIUM 8.9 mg/dL (8.5-10.1); CHLORIDE 101 mmol/L (98-107); CO2 27 mmol/L (21-32); GLUCOSE 259 mg/dL (70-99); POTASSIUM 3.8 mmol/L (3.5-5.1); SODIUM 138 mmol/L (136-145)
[2019-01-03 14:03] LABS: ALBUMIN 3.6 g/dL (3.4-5.0); ALKALINE PHOSPHATASE 124 U/L (46-116); LIPASE 200 U/L (73-393); SGOT 36 U/L (15-37); SGPT 43 U/L (30-65); TOTAL BILIRUBIN 0.3 mg/dL (<0.1-1.0); TOTAL PROTEIN 7.7 g/dL (6.4-8.2); TROPONIN-I LEVEL <0.06 ng/mL (<0.06)
[2019-01-03 15:33] LABS: URINE BILIRUBIN NEGATIVE (Negative); URINE BLOOD NEGATIVE (Negative); URINE CLARITY CLEAR; URINE COLOR YELLOW; URINE GLUCOSE-RANDOM 1+ (Negative); URINE KETONES NEGATIVE (Negative); URINE LEUKOCYTES-REFLEX NEGATIVE (Negative); URINE NITRITE-REFLEX NEGATIVE (Negative); URINE PROTEIN 2+ (Negative); URINE SPECIFIC GRAVITY 1.015 (1.005-1.030); URINE UROBILINOGEN 0.2 E.U./dl (0.2-1.0)
[2019-01-03 15:45] LABS: BACTERIA-REFLEX 1-9 Few /HPF (None Seen); CASTS None Seen /LPF (None Seen); CRYSTALS None Seen /LPF (None Seen); SQUAMOUS 4-10 Moderate /LPF (0-3); URINE RBC 0-2 Rare /HPF (0-2); URINE WBC-REFLEX 0-5 Rare /HPF (0-5)
[2019-01-03] MEDS ORDERED: CITRATE OF MAG296 ML PO (16:32)
[2019-01-03] MEDS ORDERED: PHENERGAN 25 MG25 M1 PO (16:32)
[2019-01-03 16:45] VITALS: BP 161/95
[2019-01-03] MEDS ORDERED: CLONIDINE0.1 PO (16:49)
--- NOTE | 2019-01-04 16:15 | EKG ---
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
== END 2019-01-03 16:44 | disposition home or self-care (01) ==
LOC: M.ERS 12:30
PROVIDERS: Nurse Practitioner Family
DX: K59.00 Constipation, unspecified (principal); I10 Essential (primary) hypertension; F17.210 Nicotine dependence, cigarettes, uncomplicated; Z88.1 Allergy status to other antibiotic agents; Z88.6 Allergy status to analgesic agent; Z88.8 Allergy status to other drugs, medicaments and biological substances; Z90.710 Acquired absence of both cervix and uterus; Z90.49 Acquired absence of other specified parts of digestive tract; Z87.442 Personal history of urinary calculi; Z95.5 Presence of coronary angioplasty implant and graft; Z85.3 Personal history of malignant neoplasm of breast

== ENCOUNTER 2019-05-01 18:10 | Emergency (ER) | payer OTHER ==
[~2019-05-01] VITALS: Ht 170.2 cm; Wt 90.7 kg
[~2019-05-01 18:10] MED LIST changes: +CITRATE OF MAG296 ML PO
[2019-05-01 18:47] LABS: URINE BILIRUBIN NEGATIVE (Negative); URINE BLOOD 1+ (Negative); URINE CLARITY HAZY; URINE COLOR YELLOW; URINE GLUCOSE-RANDOM 2+ (Negative); URINE KETONES NEGATIVE (Negative); URINE LEUKOCYTES-REFLEX NEGATIVE (Negative); URINE NITRITE-REFLEX NEGATIVE (Negative); URINE PROTEIN 3+ (Negative); URINE UROBILINOGEN 0.2 E.U./dl (0.2-1.0)
[2019-05-01 18:57] LABS: BACTERIA-REFLEX None Seen /HPF (None Seen); CASTS None Seen /LPF (None Seen); CRYSTALS None Seen /LPF (None Seen); SQUAMOUS >10 Many /LPF (0-3); URINE RBC 3-10 Few /HPF (0-2); URINE WBC-REFLEX None Seen /HPF (0-5)
[2019-05-01 19:17] LABS: ABSOLUTE EOSINOPHILS 0.1 thou/uL (0.0-0.7); ABSOLUTE LYMPHOCYTES 3.2 thou/uL (0.8-5.3); ABSOLUTE MONOCYTES 0.7 thou/uL (0.0-1.2); ABSOLUTE NEUTROPHILS 10.5 thou/uL (1.6-8.1); BASOPHILS 0.2 %; EOSINOPHILS 0.8 %; HEMATOCRIT 50.3 % (37.0-47.0); HEMOGLOBIN 17.2 gm/dL (12.0-15.0); LYMPHOCYTES 22.2 %; MCH 30.1 pg (26.0-34.0); MCHC 34.2 g/dL (28.0-37.0); MCV 88.1 fL (80.0-100.0); MPV 9.1 fl. (7.2-11.1); NUCLEATED RBCS 0 /100WBC; PLATELET COUNT* 299 thou/uL (150-400); POLYS 71.8 %; RBC 5.71 mil/uL (4.20-5.00); WBC 14.6 thou/uL (4.0-11.0)
[2019-05-01 19:32] LABS: CALCIUM 9.3 mg/dL (8.5-10.1); CREATININE 0.8 mg/dL (0.6-1.3); POTASSIUM 4.1 mmol/L (3.5-5.1)
[2019-05-01 19:36] LABS: ALBUMIN 3.8 g/dL (3.4-5.0); TOTAL BILIRUBIN 0.3 mg/dL (<0.1-1.0); TOTAL PROTEIN 8.5 g/dL (6.4-8.2)
[2019-05-01] MEDS ORDERED: ZOFRAN ODT4 MG DISSOLVE (20:24)
[2019-05-01] MEDS ORDERED: NORCO 5-325 TA1 EAC1 PO (20:24)
[2019-05-01 20:40] VITALS: BP 164/102
== END 2019-05-01 20:41 | disposition home or self-care (01) ==
LOC: M.ERS 18:10
PROVIDERS: Family Medicine
DX: R10.32 Left lower quadrant pain (principal); R11.2 Nausea with vomiting, unspecified; I10 Essential (primary) hypertension; F17.210 Nicotine dependence, cigarettes, uncomplicated; E11.9 Type 2 diabetes mellitus without complications; Z90.49 Acquired absence of other specified parts of digestive tract; Z79.899 Other long term (current) drug therapy; Z88.1 Allergy status to other antibiotic agents; Z88.6 Allergy status to analgesic agent; Z88.5 Allergy status to narcotic agent; Z90.710 Acquired absence of both cervix and uterus; Z85.43 Personal history of malignant neoplasm of ovary; Z87.442 Personal history of urinary calculi; Z88.8 Allergy status to other drugs, medicaments and biological substances

== ENCOUNTER 2019-05-12 13:03 | Emergency (ER) | payer OTHER ==
[~2019-05-12] VITALS: Ht 170.2 cm; Wt 90.7 kg
[~2019-05-12 13:03] MED LIST changes: +ZOFRAN ODT4 MG DISSOLVE
[2019-05-12 13:45] LABS: ABSOLUTE BASOPHILS 0.1 thou/uL (0.0-0.2); ABSOLUTE EOSINOPHILS 0.1 thou/uL (0.0-0.7); ABSOLUTE MONOCYTES 0.5 thou/uL (0.0-1.2); ABSOLUTE NEUTROPHILS 7.9 thou/uL (1.6-8.1); EOSINOPHILS 0.7 %; HEMATOCRIT 46.8 % (37.0-47.0); HEMOGLOBIN 16.5 gm/dL (12.0-15.0); LYMPHOCYTES 19.1 %; MCH 30.9 pg (26.0-34.0); MCHC 35.1 g/dL (28.0-37.0); MONOCYTES 4.7 %; MPV 8.9 fl. (7.2-11.1); NUCLEATED RBCS 0 /100WBC; PLATELET COUNT* 233 thou/uL (150-400); POLYS 74.5 %; RBC 5.32 mil/uL (4.20-5.00); RDW-CV 15.1 % (10.5-14.5); WBC 10.7 thou/uL (4.0-11.0)
[2019-05-12 13:56] LABS: APTT 26.8 Seconds (25.0-31.3); INR 1.1; PROTIME 11.2 Seconds (9.20-11.50)
--- NOTE | 2019-05-12 13:56 | EKG ---
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1975 Requested By: Telly Bobo Order Number: [id number] MD: Eric Lovelace Measurements Intervals [place] Rate: 115 P: 14 TN: 131 QRS: 47 QRSD: 91 T: -1 QT: 337 QTc: 466 Interpretive Statements Sinus tachycardia Borderline T abnormalities, inferior leads Compared to ECG 01/03/2019 14:14:37 T-wave abnormality now present Sinus rhythm no longer present Electronically Signed On 05-12-2019 13:55:37 BUYER INTERN by Eric Lovelace [email or web address] <ELECTRONICALLY SIGNED> By: Eric Lovelace MD, [facility] 05/12/19 1355 1309 08 Eric Lovelace MD, FACC /EPI
[2019-05-12 13:58] LABS: CALCIUM 9.1 mg/dL (8.5-10.1); CREATININE 0.7 mg/dL (0.6-1.3); POTASSIUM 3.4 mmol/L (3.5-5.1)
[2019-05-12 14:04] LABS: ALBUMIN 3.7 g/dL (3.4-5.0); MAGNESIUM 1.7 mg/dL (1.8-2.4); TOTAL BILIRUBIN 0.6 mg/dL (<0.1-1.0); TOTAL PROTEIN 8.1 g/dL (6.4-8.2)
[2019-05-12 17:11] VITALS: BP 159/96
--- NOTE | 2019-05-17 17:36 | CON ---
[address] [address] CONSULTATION Name: LACHELLE VALADEZ Room: [facility] [place]#: [id number] Admission: 05/12/19 Attend Phys: Discharge: 05/12/19 Date of : 71 Report #: [id number] THIS REPORT FOR: //name// CC: J [facility] physician/PCP Telly Bobo DATE OF SERVICE: 05/12/2019 CARDIOLOGY CONSULTATION INDICATION: Chest pain. HISTORY OF PRESENT ILLNESS: The patient is a very pleasant 44-year-old white female who is known to myself. She has a history of coronary artery disease with a history of percutaneous coronary intervention to the proximal right coronary artery remotely. Catheterization 11/2018, showed the stent to be widely patent with otherwise nonocclusive disease. She has had normal left ventricular systolic function at that time. Cardiac risk factors include dyslipidemia, hypertension, family history of premature atherosclerotic coronary artery disease and tobacco use. She presented to the ER this afternoon complaining of ongoing continuous chest discomfort. EKG shows sinus tachycardia without acute ST or T-wave abnormality. She was noted to be fairly hypertensive. She reports compliance with medication. The pain radiated to the shoulders and was associated with shortness of breath. The pain was ongoing. Cardiac enzymes are negative x 2 sets. PAST MEDICAL HISTORY: 1. Coronary artery disease with remote percutaneous coronary intervention of the right coronary artery. 2. Dyslipidemia. 3. Hypertension. 4. Chronic tobacco use. 5. History of previous cholecystectomy. 6. History of previous hysterectomy. 7. History of elbow surgery remotely. FAMILY HISTORY: The patient's father had premature atherosclerotic coronary artery disease. The patient's brother of sudden in his 40s. The patient's sister of medication overdose and was noted to have cardiomegaly on autopsy. SOCIAL HISTORY: The patient continues to smoke, she quit drinking alcohol. [place] [address] CONSULTATION Name: LACHELLE VALADEZ Room: [facility] [place]#: [id number] Admission: 05/12/19 Attend Phys: Discharge: 05/12/19 Date of : 71 Report #: [id number] ALLERGIES: COMPAZINE, FLEXERIL NONSTEROIDALS, IMITREX, LEVAQUIN, NITRO. HOME MEDICATIONS: Tylenol p.r.n., Norvasc 10 mg daily, carvedilol 37.5 mg b.i.d., Trulicity 0.75 mg weekly, hydralazine 100 mg t.i.d., hydrochlorothiazide 25 mg daily, metformin 1000 mg b.i.d., Zofran p.r.n., oxycodone 5 mg q. 6 hours p.r.n., MiraLax 17 grams daily, senna-S one tablet b.i.d., spironolactone 25 mg daily, aspirin 81 mg daily. PHYSICAL EXAMINATION: VITAL SIGNS: Blood pressure 153/105, pulse 117. GENERAL: This is a pleasant lady who does not appear to be in acute distress. HEENT: Head is normocephalic, atraumatic. Extraocular muscles intact. Mucous membranes are moist. NECK: Shows no jugular venous distention. I do not appreciate carotid bruits. CHEST: Reveals clear lung coe without wheezes or rales. CARDIOVASCULAR: Reveals a regular rhythm without gallop or murmur. ABDOMEN: Reveals normal bowel sounds. The abdomen is soft, nontender. EXTREMITIES: Shows no edema. Peripheral pulses palpable. SKIN: Dry. LABORATORY DATA: A 12-lead EKG shows sinus rhythm without acute ST or T-wave abnormality. Labs are reviewed. Sodium 139, potassium 3.4, chloride 104, bicarbonate 24, BUN 8, creatinine 0.7, serum glucose 211, AST 36, lipase 125, total bilirubin 0.6, calcium 9.1, phosphorus 2.6, magnesium 1.7, alkaline phosphatase 136, ALT 46, total protein 8.1, albumin 3.7. EGFR 90. Lactic acid 1.7, LDH 163. Total CPK 23, CK-MB less than 0.5. Troponin less than 0.6 on 2 separate occasions. NT-proBNP 141. Protime 11.2, INR 1.18, PTT 26.8. D-dimer 0.39. White blood cell count 10.7, hemoglobin 16.5, platelet count 233,000. Chest x-ray was unremarkable. IMPRESSION AND RECOMMENDATIONS: 1. Prolonged chest discomfort with negative enzymes and unremarkable EKG. Doubt this represents acute coronary syndrome. She could be having some microvascular issues and strain. I will recommend better control of her blood pressure and heart rate. I have increased her carvedilol to 50 mg b.i.d. and asked her to switch from her current doses of furosemide and spironolactone to Maxzide 75/50 one tablet daily. 2. Hypertension. Blood pressure elevated. Switching to carvedilol 50 b.i.d. as outlined above. Continue other home medications outlined above with the exception of switching to Maxzide 75/50 one tablet daily. 3. Dyslipidemia. Continue Crestor at current dose. 4. Type 2 diabetes mellitus. Continue Trulicity and metformin. [place] [address] [place] [address] CONSULTATION Name: LACHELLE VALADEZ Room: [facility]#: [id number] Admission: 05/12/19 Attend Phys: Discharge: 05/12/19 Date of : 71 Report #: [id number] At this point, the patient appears to be stable from a cardiac standpoint. I believe she could be discharged and follow up as an outpatient. <ELECTRONICALLY SIGNED> By: Eric Lovelace MD, FACC 05/17/19 1736 1633 0031Michaeashlee Lovelace MD, FACC /nt
== END 2019-05-12 17:12 | disposition home or self-care (01) ==
LOC: M.ERS 13:03
PROVIDERS: Emergency Medicine Emergency Medical Services
DX: R07.89 Other chest pain (principal); I10 Essential (primary) hypertension; E11.9 Type 2 diabetes mellitus without complications; F17.210 Nicotine dependence, cigarettes, uncomplicated; Z90.710 Acquired absence of both cervix and uterus; Z90.49 Acquired absence of other specified parts of digestive tract; Z87.442 Personal history of urinary calculi; Z88.6 Allergy status to analgesic agent; Z88.1 Allergy status to other antibiotic agents; Z88.8 Allergy status to other drugs, medicaments and biological substances

== ENCOUNTER 2019-05-28 16:55 | Emergency (ER) | payer OTHER ==
[~2019-05-28] VITALS: Ht 170.2 cm; Wt 90.7 kg
[2019-05-28 18:51] VITALS: BP 203/136
== END 2019-05-28 18:53 | disposition home or self-care (01) ==
LOC: M.ERS 16:55
DX: R68.84 Jaw pain (principal); I10 Essential (primary) hypertension; F17.210 Nicotine dependence, cigarettes, uncomplicated; Z88.1 Allergy status to other antibiotic agents; Z88.6 Allergy status to analgesic agent; Z88.8 Allergy status to other drugs, medicaments and biological substances; Z90.710 Acquired absence of both cervix and uterus; Z90.49 Acquired absence of other specified parts of digestive tract; Z87.442 Personal history of urinary calculi; V89.2XXA Person injured in unspecified motor-vehicle accident, traffic, initial encounter; Y93.89 Activity, other specified; Y92.89 Other specified places as the place of occurrence of the external cause; Y99.8 Other external cause status

== ENCOUNTER 2019-06-12 17:14 | Emergency (ER) | payer OTHER ==
[~2019-06-12] VITALS: Ht 170.2 cm; Wt 90.7 kg
[2019-06-12 18:54] LABS: HEMATOCRIT 45.6 % (37.0-47.0); HEMOGLOBIN 15.8 gm/dL (12.0-15.0); MCH 30.6 pg (26.0-34.0); MCHC 34.6 g/dL (28.0-37.0); MCV 88.3 fL (80.0-100.0); MPV 9.3 fl. (7.2-11.1); NUCLEATED RBCS 0 /100WBC; PLATELET COUNT* 248 thou/uL (150-400); RBC 5.17 mil/uL (4.20-5.00); RDW-CV 15.3 % (10.5-14.5); WBC 9.8 thou/uL (4.0-11.0)
[2019-06-12 19:03] LABS: CALCIUM 8.7 mg/dL (8.5-10.1); CREATININE 0.7 mg/dL (0.6-1.3); POTASSIUM 3.8 mmol/L (3.5-5.1)
[2019-06-12 19:08] LABS: ALBUMIN 3.5 g/dL (3.4-5.0); TOTAL BILIRUBIN 0.2 mg/dL (<0.1-1.0)
[2019-06-12] MEDS ORDERED: ONDANSETRON ODT4 MG PO (19:33)
[2019-06-12] MEDS ORDERED: NORCO 5-325 TA1 EAC1 PO (19:33)
[2019-06-12] MEDS ORDERED: KEFLEX500 M1 PO (19:33)
[2019-06-12 19:42] VITALS: BP 165/107
[2019-06-12 21:03] LABS: ABSOLUTE LYMPHOCYTES 1.8 thou/uL (0.8-5.3); ABSOLUTE MONOCYTES 0.5 thou/uL (0.0-1.2); ABSOLUTE NEUTROPHILS 7.5 thou/uL (1.6-8.1); ATYPICAL LYMPHS 2 %; PLATELET ESTIMATE ADEQUATE
== END 2019-06-12 19:42 | disposition home or self-care (01) ==
LOC: M.ERS 17:14
PROVIDERS: Physician Assistant
DX: N61.1 Abscess of the breast and nipple (principal); I10 Essential (primary) hypertension; F17.210 Nicotine dependence, cigarettes, uncomplicated; Z90.49 Acquired absence of other specified parts of digestive tract; Z85.41 Personal history of malignant neoplasm of cervix uteri; Z90.710 Acquired absence of both cervix and uterus; Z88.1 Allergy status to other antibiotic agents; Z88.6 Allergy status to analgesic agent; Z88.8 Allergy status to other drugs, medicaments and biological substances

== ENCOUNTER 2019-06-15 11:13 | Inpatient (IN) | payer OTHER ==
[~2019-06-15] VITALS: Ht 170.2 cm; Wt 98.0 kg
[2019-06-15 12:05] LABS: ABSOLUTE BASOPHILS 0.1 thou/uL (0.0-0.2); ABSOLUTE EOSINOPHILS 0.1 thou/uL (0.0-0.7); ABSOLUTE LYMPHOCYTES 1.9 thou/uL (0.8-5.3); ABSOLUTE MONOCYTES 0.5 thou/uL (0.0-1.2); ABSOLUTE NEUTROPHILS 8.3 thou/uL (1.6-8.1); BASOPHILS 1.3 %; HEMATOCRIT 47.7 % (37.0-47.0); HEMOGLOBIN 16.5 gm/dL (12.0-15.0); LYMPHOCYTES 17.3 %; MCH 30.3 pg (26.0-34.0); MCHC 34.5 g/dL (28.0-37.0); MCV 87.8 fL (80.0-100.0); MONOCYTES 4.1 %; MPV 9.3 fl. (7.2-11.1); NUCLEATED RBCS 0 /100WBC; PLATELET COUNT* 301 thou/uL (150-400); POLYS 76.3 %; RBC 5.43 mil/uL (4.20-5.00); RDW-CV 15.5 % (10.5-14.5); WBC 10.9 thou/uL (4.0-11.0)
[2019-06-15 12:18] LABS: CALCIUM 9.1 mg/dL (8.5-10.1); CREATININE 0.7 mg/dL (0.6-1.3)
[2019-06-15 12:23] LABS: ALBUMIN 3.7 g/dL (3.4-5.0); TOTAL BILIRUBIN 0.5 mg/dL (<0.1-1.0); TOTAL PROTEIN 8.4 g/dL (6.4-8.2)
[2019-06-15 16:44] VITALS: BP 167/117
[2019-06-15 18:00] VITALS: BP 171/103
--- NOTE | 2019-06-15 20:12 | NUR ---
PT ADMITTED TO 108. ASSESSMENT CHARTED. VSS. SURGERY CONSULTED AND WOUND CULTURES SENT TO LAB. WOUND PACKED AND DRESSED BY SURGERY, OK FOR WARM COMPRESS. PAIN MEDS INCREASED FOR COMFORT. UP AD SHIRLEY IN ROOM. NO OTHER COMPLAINTS. PT DENIES N/V AT THIS TIME.
[2019-06-15 20:30] VITALS: BP 156/97
[2019-06-16 05:30] VITALS: BP 195/103
--- NOTE | 2019-06-16 07:51 | NUR ---
Alert and oriented x 4. She has optifoam dressing to rt breast and it is packed. Cultures of drainage sent to lab last evening. She has had fentanyl about every 2 hours for pain,rating 8-10/10 this shift. She is up independently in the room. BP elevated this am she did recieve BP meds. She has slept intermittenly. Aqua Kpad ordered by Dr Luna and he changed the dressing.
[2019-06-16 08:00] VITALS: BP 182/108
[2019-06-16 08:19] LABS: HEMATOCRIT 43.5 % (37.0-47.0); HEMOGLOBIN 14.6 gm/dL (12.0-15.0); MCH 29.9 pg (26.0-34.0); MCHC 33.7 g/dL (28.0-37.0); MCV 88.7 fL (80.0-100.0); MPV 9.1 fl. (7.2-11.1); RBC 4.9 mil/uL (4.20-5.00); RDW-CV 15.1 % (10.5-14.5); WBC 7.5 thou/uL (4.0-11.0)
[2019-06-16 08:31] LABS: ALBUMIN 3.3 g/dL (3.4-5.0); CALCIUM 8.6 mg/dL (8.5-10.1); CREATININE 0.9 mg/dL (0.6-1.3); POTASSIUM 3.8 mmol/L (3.5-5.1); TOTAL BILIRUBIN 0.3 mg/dL (<0.1-1.0); TOTAL PROTEIN 7.4 g/dL (6.4-8.2)
[2019-06-16 16:20] VITALS: BP 120/58
--- NOTE | 2019-06-16 19:00 | NUR ---
PATIENT PLEASANT AND COOPERATIVE W/ ASSESS AND CARES. SEE GLENYS. EMILIA TO RT BREAST CDI. CALL LIGHT IN REACH. IV SITE WNL.
[2019-06-16 21:58] VITALS: BP 167/101
--- NOTE | 2019-06-17 06:26 | NUR ---
PATIENT REPORTED BREAST PAIN 01/11 MOST ASSESSMENTS RECEIVED FENTANYL 75MCG Q2 FOR PAIN AND TOOK ALL MEDS SCHEDULED. SHE IS ABLE TO GET UP TO RESTROOM FINE. SHE SAYS THE AMOUNT OF FENTANYL IS NOT ENOUGH. SHE MAYBE HERE ALL WEEKEND PENDING CULTURE RESULTS. IV ABX PENDING RESULTS. PAIN AND BP CONTROL/. WILL CONTINUE TO FOLLOW PLAN OF CARE.
[2019-06-17 08:00] VITALS: BP 159/113
--- NOTE | 2019-06-17 11:07 | NUR ---
ASSUMED PT CARE 0730. PT RATING PAIN 9/10. ORAL HYDROCODONE ADMINISNTERED WITH LIDOCAINE. PT LOST IV ACCESS. DR FREIRE AND REPORTED THAT IV INFILTRATED WITH IV VANCOMYCIN, ASKED DR HORN IF WOULD LIKE A PICC LINE TO PREVENT INFILTRATION. VANCOMYCIN DC'D. PT ASKING WHEN SHE WILL GET AN IV, SO THAT SHE CAN GET IV FENTANLY. FENTANLY DC'D. PT REPORTED FENTANLY WAS HELPING WITH PAIN AND BRINGS PAIN TO 7/10. PT REPORTS HYDROCODONE DID NOT WORK AT HOME AND THAT'S WHY SHE CAME INTO HOSPITAL. PT IN TEARS, IN PAIN 9/10, PT STATING, "I MAY WELL GO HOME". PT REASSURED. DR FREIRE AND TO SEE PT IN [address] PT'S PAIN. SAW PT AND ONE TIME FENTANLY IV ORDERED. PT AWAITING IV AT THIS TIME. NO TEARS AT THIS TIME.
[2019-06-17 13:10] VITALS: BP 117/62
--- NOTE | 2019-06-17 13:11 | NUR ---
Nutrition: Pt admitted with Rt breast cellulitis/abscess/pain. Consult for "?BMI." Wt is ~200#, BMI 31.3. Regular idet ordered, ate ~25%. H/o DM, HTN. BG 177, albumin 3.3. RD will order Saleem for wound healing. Recommend MVI with zinc, C, A as well. Mild risk. Will follow up per protocol.
--- NOTE | 2019-06-17 15:01 | NUR ---
PT REPORTS "THIS ISN'T WORKING". PAIN 8/10 AND PAIN FEELS LIKE BURNING. DR FREIRE. AWAITING RETURN CALL.
--- NOTE | 2019-06-17 16:05 | NUR ---
ATTEMPTED TO DO VITALS, PER RN DOING VITALS, PT STATED, "I'M TRYING TO FIND A WAY OUT OF HERE".
--- NOTE | 2019-06-17 16:45 | NUR ---
PT CALLED TO [facility] AND ASKED FOR AMA PAPER WORK. NOTIFIED PT REQUESTING AMA PAPERWORK. DISCUSSED WITH DR HORN, PT STATES HYDDROCODONE AND GABAPENTIN ARE NOT ALEVIATING PT'S PAIN. NO ADDITIONAL ORDERS RECEIVED.
--- NOTE | 2019-06-17 17:14 | NUR ---
SPOKE TO PATIENT. PT STATED SHE NEEDS TO LEAVE TO TAKE CARE OF HER MOTHER. PT REPORTS MOTHER IS IN POLICE CUSTODY AT THIS TIME AND PT NEEDS TO MAKE ARRANGEMENTS FOR MOTHER. PT STATES SHE DOES NOT WANT TO LEAVE, BUT NEEDS TO TAKE CARE OF HER MOTHER. DISCUSSED WITH PT SHE IS LEAVING WITHOUT ANTIBIOTICS AND NEEDS THEM FOR HER ABCESS. PT COMMUNICATES UNDERSTANDING. DR. HORN NOTIFIED OF PT'S REASON FOR LEAVING AMA.
== END 2019-06-17 17:22 | disposition left against medical advice (07) | DRG 600 ==
LOC: M.ERS 11:13 → M.ORTHSURG 13:33 → M.TBA-ER 13:33 → M.ORTHSURG 16:40
PROVIDERS: Physician Assistant; Surgery; ADMIT Internal Medicine
DX: N61.0 Mastitis without abscess (principal); I47.1 Supraventricular tachycardia; N61.1 Abscess of the breast and nipple; I10 Essential (primary) hypertension; E11.9 Type 2 diabetes mellitus without complications; I25.10 Atherosclerotic heart disease of native coronary artery without angina pectoris; E78.5 Hyperlipidemia, unspecified; F17.210 Nicotine dependence, cigarettes, uncomplicated; Z53.29 Procedure and treatment not carried out because of patient's decision for other reasons; Z85.43 Personal history of malignant neoplasm of ovary; Z85.41 Personal history of malignant neoplasm of cervix uteri; Z90.710 Acquired absence of both cervix and uterus; Z90.49 Acquired absence of other specified parts of digestive tract; Z95.5 Presence of coronary angioplasty implant and graft; Z85.3 Personal history of malignant neoplasm of breast; Z79.01 Long term (current) use of anticoagulants; Z79.899 Other long term (current) drug therapy; Z79.84 Long term (current) use of oral hypoglycemic drugs; Z88.1 Allergy status to other antibiotic agents; Z88.8 Allergy status to other drugs, medicaments and biological substances; Z82.49 Family history of ischemic heart disease and other diseases of the circulatory system

== ENCOUNTER 2019-06-19 12:19 | Inpatient (IN) | payer OTHER ==
[~2019-06-19] VITALS: Ht 170.2 cm; Wt 90.7 kg
[2019-06-19 12:28] VITALS: BP 193/111
[2019-06-19 13:15] LABS: ABSOLUTE BASOPHILS 0.1 thou/uL (0.0-0.2); ABSOLUTE EOSINOPHILS 0.1 thou/uL (0.0-0.7); ABSOLUTE MONOCYTES 0.6 thou/uL (0.0-1.2); ABSOLUTE NEUTROPHILS 8.8 thou/uL (1.6-8.1); BASOPHILS 1.2 %; EOSINOPHILS 1.2 %; HEMATOCRIT 50.1 % (37.0-47.0); HEMOGLOBIN 17.2 gm/dL (12.0-15.0); MCHC 34.3 g/dL (28.0-37.0); MCV 87.4 fL (80.0-100.0); MONOCYTES 5.3 %; MPV 9.2 fl. (7.2-11.1); NUCLEATED RBCS 0 /100WBC; PLATELET COUNT* 328 thou/uL (150-400); POLYS 75.3 %; RBC 5.73 mil/uL (4.20-5.00); RDW-CV 15.3 % (10.5-14.5); WBC 11.7 thou/uL (4.0-11.0)
[2019-06-19 13:21] LABS: CALCIUM 9.9 mg/dL (8.5-10.1); POTASSIUM 4.7 mmol/L (3.5-5.1)
[2019-06-19 13:35] LABS: ALBUMIN 4.1 g/dL (3.4-5.0); TOTAL BILIRUBIN 0.4 mg/dL (<0.1-1.0)
[2019-06-19 14:25] VITALS: BP 184/118
--- NOTE | 2019-06-19 14:35 | NUR ---
PATIENT ADMITTED TO RM 110 PER WC FROM ER. REPORT REC'D FROM GLORY HOLE TENDER. IV SITE NOTED 22GA TO RT FINGER. IV FLUIDS INITIATIN W/ DIFF. PATIENT STATES RT BREAST PAIN AND REDNESS UNCHANGED. STATES THAT OUTPATIENT THERAPY DID NOT WORK. ALERT AND ORIENTED. INDEPENEDENT IN RM. ORIENTED TO RM AND POC. PATIENT STATES VERBALLY OF UNDERSTNADING. CALL LI IN REACH. ~COLTON
[2019-06-19 15:49] VITALS: BP 149/95
[2019-06-19 20:30] VITALS: BP 143/102
[2019-06-20 03:30] VITALS: BP 151/87
--- NOTE | 2019-06-20 06:33 | NUR ---
Alert and oriented x 4. She has a opsite dressing with packing to rt breast, abscess. Rt breast is red with edema. She stated that the dressing was applied in ER yesterday. She has an IV in her rt finger and it is working well. She did request that doctor be notified that her pain meds were not controlling her pain. Dr Crowley was notified and adjustment was made. She did rate her pain at 10/10 and now it has decreased to 8/10. She is up independently in the room. She had nausea med x 3. She hasn't slept very much.
[2019-06-20 07:48] VITALS: BP 143/82
--- NOTE | 2019-06-20 10:40 | NUR ---
PT DID NOT WANT TO COMPLETE ASSESSMENT D/ "BEING IN PX." PT STATES "IM TRING TO REST B/C i AM IN PAIN. MY BREAST HURT." CM INQUIRED ABOUT PX MED. PT STATES SHE IS DUE AT NOON. CM TO REMAIN AVAIL...
[2019-06-20 13:51] LABS: ABSOLUTE EOSINOPHILS 0.2 thou/uL (0.0-0.7); ABSOLUTE LYMPHOCYTES 2.2 thou/uL (0.8-5.3); ABSOLUTE MONOCYTES 0.7 thou/uL (0.0-1.2); ABSOLUTE NEUTROPHILS 5.2 thou/uL (1.6-8.1); BASOPHILS 0.3 %; EOSINOPHILS 2.2 %; HEMATOCRIT 43.9 % (37.0-47.0); LYMPHOCYTES 26.7 %; MCH 29.7 pg (26.0-34.0); MCHC 32.9 g/dL (28.0-37.0); MCV 90.4 fL (80.0-100.0); MONOCYTES 8.7 %; MPV 9.6 fl. (7.2-11.1); NUCLEATED RBCS 0 /100WBC; POLYS 62.1 %; RBC 4.86 mil/uL (4.20-5.00); RDW-CV 15.3 % (10.5-14.5); WBC 8.4 thou/uL (4.0-11.0)
[2019-06-20 13:54] LABS: HEMOGLOBIN 14.4 gm/dL (12.0-15.0); PLATELET COUNT* 215 thou/uL (150-400)
--- NOTE | 2019-06-20 14:02 | NUR ---
cm completed initial assessment to discuss d/c planning. pt a&o. pt lives at home w/fiance, who is "somewhat" supportive. pt denies resource packet. pt is in process of looking for a job. pt has no hx of hh nor snf. pt has no dme. pt plans to rtrn home at d/c. cm to remain avail.
[2019-06-20 14:12] LABS: ALBUMIN 3.4 g/dL (3.4-5.0); CALCIUM 9.1 mg/dL (8.5-10.1); CREATININE 0.8 mg/dL (0.6-1.3); TOTAL BILIRUBIN 0.2 mg/dL (<0.1-1.0); TOTAL PROTEIN 7.3 g/dL (6.4-8.2)
--- NOTE | 2019-06-20 17:19 | NUR ---
PT A&Ox4. VITALS STABLE. IV PATENT, INFUSING. UP AD SHIRLEY. NAUSEA CONTROLLED WITH ZOFRAN. PAIN PARTIALLY CONTROLLED WITH NORCO AND FENTANYL. CALL LIGHT WITHIN REACH WILL CONTINUE TO MONITOR.
[2019-06-20 20:00] VITALS: BP 160/100
[2019-06-21 05:35] VITALS: BP 151/91
[2019-06-21 06:18] LABS: ABSOLUTE BASOPHILS 0.1 thou/uL (0.0-0.2); ABSOLUTE EOSINOPHILS 0.2 thou/uL (0.0-0.7); ABSOLUTE LYMPHOCYTES 2.4 thou/uL (0.8-5.3); ABSOLUTE MONOCYTES 0.7 thou/uL (0.0-1.2); ABSOLUTE NEUTROPHILS 4.7 thou/uL (1.6-8.1); BASOPHILS 1.2 %; HEMATOCRIT 41.7 % (37.0-47.0); HEMOGLOBIN 14.1 gm/dL (12.0-15.0); LYMPHOCYTES 29.6 %; MCH 30.2 pg (26.0-34.0); MCHC 33.9 g/dL (28.0-37.0); MCV 89.2 fL (80.0-100.0); MONOCYTES 8.3 %; MPV 9.7 fl. (7.2-11.1); NUCLEATED RBCS 0 /100WBC; PLATELET COUNT* 235 thou/uL (150-400); POLYS 57.9 %; RBC 4.68 mil/uL (4.20-5.00); RDW-CV 15.2 % (10.5-14.5); WBC 8.1 thou/uL (4.0-11.0)
[2019-06-21 06:31] LABS: CALCIUM 8.9 mg/dL (8.5-10.1); CREATININE 0.8 mg/dL (0.6-1.3); POTASSIUM 3.6 mmol/L (3.5-5.1)
--- NOTE | 2019-06-21 06:39 | NUR ---
ASSUMED CARE OF PT 06/20/19 AT APPROX 1930, PT A&OX4, PT ON ROOM AIR, VSS, PAIN MEDS REQUESTED AND GIVEN ORDERED, ASSESSMENTS AND HOURLY ROUNDINGS COMPLETED, WILL CONTINUE TO MONITOR.
--- NOTE | 2019-06-21 08:08 | CON ---
[address] [address] CONSULTATION Name: LACHELLE VALADEZ Room: [address] ADM IN M.R.#: [id number] Admission: 06/19/19 Attend Phys: Ed Rodriguez Discharge: Date of : 71 Report #: [id number] THIS REPORT FOR: //name// cc: J LUIS Rowland family physician/PCP J LUIS - Janett family physician/PCP ~ THIS REPORT FOR: //name// CC: [facility] physician/PCP Jay Crowley DATE OF SERVICE: 06/20/2019 ATTENDING PHYSICIAN: Dr. Mejia REASON FOR EVALUATION: Right breast abscess with cellulitis. HISTORY OF PRESENT ILLNESS: Chart reviewed and the patient examined. This is a 44-year-old woman with fairly extensive significant medical history and distal history of ovarian cancer, more recently within the last 3 years, diagnosed with inflammatory breast cancer. She had received a treatment, considered cured. She had developed a plaque-like lesion over the superior aspect of her right breast. Denies any antecedent injury. This localized developed nodular perhaps subcutaneous fluid collection became quite painful. She did have associated chills and had some anorexia with poor p.o. intake. She was evaluated roughly a week ago and did undergo bedside debridement. She felt that this was not particularly aggressive and did have culture isolate of Klebsiella pneumonia. It was susceptible with exception of ampicillin. She was treated with cephalexin. It persisted requiring narcotic analgesics due to the severity of the pain. She returned as a result and was subsequently admitted and underwent incision and drainage procedure per General Surgery, awaiting results of blood cultures which were stable thus far. She was empirically placed on ceftriaxone as well as clindamycin. She is not overtly toxic at this point. Denies any significant pulmonary-related complaints. She has had some loose stools which may be attributable to antibiotics. She is not encephalopathic. ALLERGIES: LISTED TO COMPAZINE, FLEXERIL, CHASE INHIBITORS, NONSTEROIDALS, NITROGLYCERINS, IMITREX, TRAMADOL, AND LEVAQUIN, DESCRIBED CAUSING URTICARIA. CURRENT MEDICATIONS: Include p.r.n. analgesics, antiemetics, amlodipine, hydrochlorothiazide, spironolactone, ceftriaxone, hydralazine, carvedilol, clindamycin, metformin, and insulin lispro. PAST MEDICAL HISTORY: As noted above, inflammatory breast cancer, history of ovarian and cervical cancer, uncontrolled hypertension, diabetes mellitus, renal lithiasis, and [place] [address] CONSULTATION Name: LACHELLE VALADEZ Room: [address]#: [id number] Admission: 06/19/19 Attend Phys: Ed Rodriguez Discharge: Date of : 71 Report #: [id number] SOCIAL HISTORY: She smokes a pack a day for 26 years. No illicit drug use. No ethanol. FAMILY HISTORY: Noncontributory. REVIEW OF SYSTEMS: Otherwise, unremarkable 10-point review of systems with exception of the above. PHYSICAL EXAMINATION: GENERAL: She appears wngg-jt-ieneyymjyb ill, in mild distress, and somewhat undernourished. She is generally lucid and has decreased affect. VITAL SIGNS: Temperature 98, pulse 97, respirations 16, and blood pressure 143/82. SKIN: Warm and dry. No rashes. HEENT: Normocephalic. Extraocular muscles intact. NECK: Supple. LUNGS: Diminished breath sounds. HEART: Regular. Borderline tachycardic. I do not appreciate murmur. ABDOMEN: Soft, nontender, and nondistended. BREASTS: Right breast; there is several centimeters of superficial inflammation around the I and D site. She is quite tender. I do not appreciate any fluctuance at this point. There is no particular odor and no purulence. GENITOURINARY AND RECTAL: Deferred. LABORATORY DATA: Blood cultures sterile thus far. Culture from 06/15/2019 had growth of Klebsiella pneumoniae in vitro only resistant to ampicillin for the drugs tested. On ultrasound of the breast, there is question of focal abscess at the 2 o'clock position. Electrolytes: Sodium 137, potassium 4.7, chloride 100, bicarbonate is 27, anion gap of 10, BUN and creatinine 10 and 1.0, and glucose of 214. Albumin of 4.0. Total protein is 9.0. LFTs unremarkable with the exception of alkaline phosphatase elevated at 157. Lactic acid at 1.8. CBC: White count of 11.7, H and H 17.2 and 50.1, and platelets of 328. Blood cultures sterile thus far. ASSESSMENT AND PLAN: Right breast abscess, status post incision and drainage. It is a little bit unusual given the isolation of Klebsiella. We will continue therapy. She noted there was a foul odor and it can entire exclude associated anaerobic bacteria as well. We will ideally be able to pare down therapy fairly quickly. Continue wound care as prescribed. We will monitor expectantly. <ELECTRONICALLY SIGNED> By: Rhett Domínguez MD 06/21/19 0808 [id number] [id number] Domínguez MD /nt
[2019-06-21 08:38] LABS: AMP/METHAMP Negative (Negative); BARBITURATES Negative (Negative); BENZODIAZEPINES Negative (Negative); COCAINE Negative (Negative); METHADONE Negative (Negative); OPIATES POSITIVE (Negative); PCP Negative (Negative); THC Negative (Negative)
[2019-06-21 09:41] VITALS: BP 134/73
[2019-06-21] MEDS ORDERED: PERCOCET 5-3251 EACH PO (10:12)
[2019-06-21] MEDS ORDERED: AUGMENTIN 875-1 EACH PO (10:12)
[2019-06-21 12:49] VITALS: BP 134/73
--- NOTE | 2019-06-21 14:23 | NUR ---
PT DISCHARGED ABOUT 1340 TO HOME WITH . IV OUT. PT STABLE. PAIN CONTROLLED. PACKING AND DRESSING CHANGING SUPPLIES SENT WITH PT.
== END 2019-06-21 14:25 | disposition home or self-care (01) | DRG 585 ==
LOC: M.ERS 12:19 → M.ORTHSURG 13:40 → M.TBA-ER 13:40 → M.ORTHSURG 15:09
PROVIDERS: Internal Medicine; Nurse Practitioner Family; ADMIT Internal Medicine
PROC: 0H9T0ZZ Drainage of Right Breast, Open Approach (ICD-10-PCS; principal; 2019-06-19)
DX: N61.1 Abscess of the breast and nipple (principal); N61.0 Mastitis without abscess; I10 Essential (primary) hypertension; F17.210 Nicotine dependence, cigarettes, uncomplicated; I25.10 Atherosclerotic heart disease of native coronary artery without angina pectoris; E11.65 Type 2 diabetes mellitus with hyperglycemia; G89.29 Other chronic pain; Z85.43 Personal history of malignant neoplasm of ovary; Z90.710 Acquired absence of both cervix and uterus; Z90.49 Acquired absence of other specified parts of digestive tract; Z87.442 Personal history of urinary calculi; Z95.5 Presence of coronary angioplasty implant and graft; Z88.1 Allergy status to other antibiotic agents; Z88.8 Allergy status to other drugs, medicaments and biological substances; Z82.49 Family history of ischemic heart disease and other diseases of the circulatory system; Z92.21 Personal history of antineoplastic chemotherapy; Z92.3 Personal history of irradiation; Z76.5 Malingerer [conscious simulation]; Z79.899 Other long term (current) drug therapy

== ENCOUNTER 2019-06-26 13:48 | Emergency (ER) | payer OTHER ==
[~2019-06-26] VITALS: Ht 170.2 cm; Wt 90.7 kg
[~2019-06-26 13:48] MED LIST changes: +AUGMENTIN 875-1 EACH PO
[2019-06-26 13:54] VITALS: BP 248/142
== END 2019-06-26 14:12 | disposition home or self-care (01) ==
LOC: M.ERS 13:48
DX: G89.18 Other acute postprocedural pain (principal); N64.4 Mastodynia; I10 Essential (primary) hypertension; F17.210 Nicotine dependence, cigarettes, uncomplicated; Z90.49 Acquired absence of other specified parts of digestive tract; Z90.710 Acquired absence of both cervix and uterus; Z87.442 Personal history of urinary calculi; Z95.2 Presence of prosthetic heart valve; Z85.3 Personal history of malignant neoplasm of breast; Z90.11 Acquired absence of right breast and nipple; Z85.43 Personal history of malignant neoplasm of ovary; Z88.1 Allergy status to other antibiotic agents; Z88.6 Allergy status to analgesic agent; Z88.8 Allergy status to other drugs, medicaments and biological substances

== ENCOUNTER 2020-05-08 19:00 | Emergency (ER) | payer OTHER ==
[~2020-05-08] VITALS: Ht 170.2 cm; Wt 85.3 kg
[2020-05-08] MEDS ORDERED: BACTRIM DS TAB1 EACH PO (21:01)
[2020-05-08] MEDS ORDERED: NABUMETONE 500500 M2 PO (21:01)
[2020-05-08 21:29] VITALS: BP 225/136
== END 2020-05-08 21:29 | disposition home or self-care (01) ==
LOC: M.ERS 19:00
DX: L02.211 Cutaneous abscess of abdominal wall (principal); L03.311 Cellulitis of abdominal wall; I10 Essential (primary) hypertension; E11.9 Type 2 diabetes mellitus without complications; F17.210 Nicotine dependence, cigarettes, uncomplicated; Z90.710 Acquired absence of both cervix and uterus; Z79.899 Other long term (current) drug therapy; Z88.1 Allergy status to other antibiotic agents; Z88.8 Allergy status to other drugs, medicaments and biological substances

== ENCOUNTER 2020-05-13 17:40 | Emergency (ER) | payer OTHER ==
[~2020-05-13] VITALS: Ht 170.2 cm; Wt 85.3 kg
[~2020-05-13 17:40] MED LIST changes: +NABUMETONE 500500 M2 PO
[2020-05-13] MEDS ORDERED: DOXYCYCLINE 10100 MG PO (19:44)
[2020-05-13] MEDS ORDERED: HYDROCODON-ACE1 EAC7 PO (19:44)
[2020-05-13 20:05] VITALS: BP 188/122
== END 2020-05-13 20:05 | disposition home or self-care (01) ==
LOC: M.ERS 17:40
DX: L02.211 Cutaneous abscess of abdominal wall (principal); I10 Essential (primary) hypertension; F17.210 Nicotine dependence, cigarettes, uncomplicated; Z90.710 Acquired absence of both cervix and uterus; Z79.899 Other long term (current) drug therapy; Z88.1 Allergy status to other antibiotic agents; Z88.8 Allergy status to other drugs, medicaments and biological substances

== ENCOUNTER 2020-08-24 09:19 | Emergency (ER) | payer OTHER ==
[~2020-08-24] VITALS: Ht 170.2 cm; Wt 85.3 kg
[~2020-08-24 09:19] MED LIST changes: +DOXYCYCLINE 10100 MG PO
[2020-08-24 10:10] LABS: ABSOLUTE BASOPHILS 0.1 thou/uL (0.0-0.2); ABSOLUTE EOSINOPHILS 0.1 thou/uL (0.0-0.7); ABSOLUTE LYMPHOCYTES 1.9 thou/uL (0.8-5.3); ABSOLUTE MONOCYTES 0.5 thou/uL (0.0-1.2); ABSOLUTE NEUTROPHILS 7.1 thou/uL (1.6-8.1); BASOPHILS 0.8 %; EOSINOPHILS 0.9 %; HEMATOCRIT 46.2 % (37.0-47.0); HEMOGLOBIN 15.1 gm/dL (12.0-15.0); LYMPHOCYTES 19.3 %; MCHC 32.8 g/dL (28.0-37.0); MCV 82.3 fL (80.0-100.0); MONOCYTES 5.5 %; MPV 8.1 fl. (7.2-11.1); NUCLEATED RBCS 0 /100WBC; PLATELET COUNT* 336 thou/uL (150-400); POLYS 73.5 %; RBC 5.61 mil/uL (4.20-5.00); RDW-CV 15.7 % (10.5-14.5); WBC 9.7 thou/uL (4.0-11.0)
[2020-08-24 10:21] LABS: CALCIUM 9.7 mg/dL (8.5-10.1); CREATININE 0.8 mg/dL (0.6-1.3); POTASSIUM 3.7 mmol/L (3.5-5.1)
[2020-08-24 10:25] LABS: ALBUMIN 3.8 g/dL (3.4-5.0); TOTAL BILIRUBIN 0.4 mg/dL (<0.1-1.0); TOTAL PROTEIN 9.4 g/dL (6.4-8.2)
[2020-08-24] MEDS ORDERED: ZOFRAN ODT4 MG DISSOLVE (13:34)
[2020-08-24] MEDS ORDERED: BACTRIM DS TAB1 EAC1 PO (13:34)
[2020-08-24 13:44] VITALS: BP 185/100
--- NOTE | 2020-08-27 10:35 | EKG ---
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
== END 2020-08-24 13:46 | disposition left against medical advice (07) ==
LOC: M.ERS 09:19
PROVIDERS: Emergency Medicine Emergency Medical Services
DX: J98.2 Interstitial emphysema (principal); L03.311 Cellulitis of abdominal wall; I10 Essential (primary) hypertension; E11.9 Type 2 diabetes mellitus without complications; F17.210 Nicotine dependence, cigarettes, uncomplicated; Z88.1 Allergy status to other antibiotic agents; Z88.6 Allergy status to analgesic agent; Z88.8 Allergy status to other drugs, medicaments and biological substances; Z85.43 Personal history of malignant neoplasm of ovary; Z90.710 Acquired absence of both cervix and uterus; Z90.49 Acquired absence of other specified parts of digestive tract; Z87.442 Personal history of urinary calculi; Z85.3 Personal history of malignant neoplasm of breast

== ENCOUNTER 2020-12-25 07:45 | Emergency (ER) | payer OTHER ==
[~2020-12-25] VITALS: Ht 170.2 cm; Wt 90.7 kg
[~2020-12-25 07:45] MED LIST changes: +BACTRIM DS TAB1 EAC1 PO
[2020-12-25 08:20] VITALS: BP 219/128
--- NOTE | 2020-12-25 15:51 | EKG ---
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 12/25/20 1551 0747 Prashanth Eden MD, [facility] /EPI
== END 2020-12-25 08:22 | disposition home or self-care (01) ==
LOC: M.ERS 07:45
DX: R07.89 Other chest pain (principal); I10 Essential (primary) hypertension; F17.210 Nicotine dependence, cigarettes, uncomplicated; Z90.711 Acquired absence of uterus with remaining cervical stump; Z85.43 Personal history of malignant neoplasm of ovary; Z87.442 Personal history of urinary calculi; Z95.5 Presence of coronary angioplasty implant and graft; Z79.899 Other long term (current) drug therapy; Z79.2 Long term (current) use of antibiotics; Z88.1 Allergy status to other antibiotic agents; Z88.8 Allergy status to other drugs, medicaments and biological substances